=== PATIENT | female | born 1955 | race Native Hawaiian/Other Pacific Islander ===

== ENCOUNTER 2020-11-06 13:03 | Outpatient (CLI) | payer OTHER ==
[~2020-11-06] VITALS: Ht 162.6 cm; Wt 79.4 kg
== END 2020-11-06 21:49 | disposition home or self-care (01) ==
LOC: DIABINF 13:03
PROVIDERS: ATTEND Internal Medicine Endocrinology, Diabetes & Metabolism
DX: E11.65 Type 2 diabetes mellitus with hyperglycemia (principal); I10 Essential (primary) hypertension; F41.8 Other specified anxiety disorders; Z86.73 Personal history of transient ischemic attack (TIA), and cerebral infarction without residual deficits; M32.9 Systemic lupus erythematosus, unspecified; G89.4 Chronic pain syndrome; M79.7 Fibromyalgia; R53.82 Chronic fatigue, unspecified; N18.9 Chronic kidney disease, unspecified
CPT/HCPCS: 82948; 96365; 96366; 96521; J1815; J1817

== ENCOUNTER 2020-11-07 12:51 | Outpatient (CLI) | payer OTHER ==
[~2020-11-07] VITALS: Ht 162.6 cm; Wt 81.2 kg
== END 2020-11-07 22:44 | disposition home or self-care (01) ==
LOC: DIABINF 12:51
PROVIDERS: ATTEND Internal Medicine Endocrinology, Diabetes & Metabolism
DX: E11.65 Type 2 diabetes mellitus with hyperglycemia (principal); I10 Essential (primary) hypertension; F41.8 Other specified anxiety disorders; Z86.73 Personal history of transient ischemic attack (TIA), and cerebral infarction without residual deficits; M32.9 Systemic lupus erythematosus, unspecified; G89.4 Chronic pain syndrome; M79.7 Fibromyalgia; R53.82 Chronic fatigue, unspecified; N18.9 Chronic kidney disease, unspecified
CPT/HCPCS: 82948; 96365; 96366; 96521; J1815; J1817

== ENCOUNTER 2020-11-13 13:11 | Outpatient (CLI) | payer OTHER ==
[~2020-11-13] VITALS: Ht 162.6 cm; Wt 81.2 kg
== END 2020-11-13 20:04 | disposition home or self-care (01) ==
LOC: DIABINF 13:11
PROVIDERS: ATTEND Internal Medicine Endocrinology, Diabetes & Metabolism
DX: E11.65 Type 2 diabetes mellitus with hyperglycemia (principal); E11.42 Type 2 diabetes mellitus with diabetic polyneuropathy; I10 Essential (primary) hypertension; Z86.73 Personal history of transient ischemic attack (TIA), and cerebral infarction without residual deficits; L93.2 Other local lupus erythematosus; G89.4 Chronic pain syndrome; M79.7 Fibromyalgia; F41.1 Generalized anxiety disorder; F32.89 Other specified depressive episodes; N18.30 Chronic kidney disease, stage 3 unspecified; I25.10 Atherosclerotic heart disease of native coronary artery without angina pectoris; H26.8 Other specified cataract; M92.62 Juvenile osteochondrosis of tarsus, left ankle
CPT/HCPCS: 82948; 96365; 96366; 96521; J1815; J1817

== ENCOUNTER 2020-11-14 12:56 | Outpatient (CLI) | payer OTHER ==
[~2020-11-14] VITALS: Ht 162.6 cm; Wt 81.2 kg
== END 2020-11-14 19:25 | disposition home or self-care (01) ==
LOC: DIABINF 12:56
PROVIDERS: ATTEND Internal Medicine Endocrinology, Diabetes & Metabolism
DX: E11.65 Type 2 diabetes mellitus with hyperglycemia (principal); E11.42 Type 2 diabetes mellitus with diabetic polyneuropathy; I10 Essential (primary) hypertension; Z86.73 Personal history of transient ischemic attack (TIA), and cerebral infarction without residual deficits; L93.2 Other local lupus erythematosus; G89.4 Chronic pain syndrome; M79.7 Fibromyalgia; F41.1 Generalized anxiety disorder; F32.89 Other specified depressive episodes; N18.30 Chronic kidney disease, stage 3 unspecified; I25.10 Atherosclerotic heart disease of native coronary artery without angina pectoris; H26.8 Other specified cataract; M92.62 Juvenile osteochondrosis of tarsus, left ankle
CPT/HCPCS: 82948; 96365; 96366; 96521; J1815; J1817

== ENCOUNTER 2020-11-20 12:44 | Outpatient (CLI) | payer OTHER ==
[~2020-11-20] VITALS: Ht 162.6 cm; Wt 81.2 kg
== END 2020-11-20 16:00 | disposition home or self-care (01) ==
LOC: DIABINF 12:44
PROVIDERS: ATTEND Nurse Practitioner
DX: E11.65 Type 2 diabetes mellitus with hyperglycemia (principal); E11.42 Type 2 diabetes mellitus with diabetic polyneuropathy; I10 Essential (primary) hypertension; Z87.820 Personal history of traumatic brain injury; L93.2 Other local lupus erythematosus; G89.4 Chronic pain syndrome; F32.89 Other specified depressive episodes; N18.30 Chronic kidney disease, stage 3 unspecified; I25.10 Atherosclerotic heart disease of native coronary artery without angina pectoris; H26.8 Other specified cataract; M92.62 Juvenile osteochondrosis of tarsus, left ankle
CPT/HCPCS: 82948; 96365; 96366; 96521; J1815; J1817; J2405

== ENCOUNTER 2020-11-21 12:56 | Outpatient (CLI) | payer OTHER ==
[~2020-11-21] VITALS: Ht 157.5 cm; Wt 81.2 kg
== END 2020-11-21 16:00 | disposition home or self-care (01) ==
LOC: DIABINF 12:56
PROVIDERS: ATTEND Internal Medicine Endocrinology, Diabetes & Metabolism
DX: E11.65 Type 2 diabetes mellitus with hyperglycemia (principal); E11.42 Type 2 diabetes mellitus with diabetic polyneuropathy; I10 Essential (primary) hypertension; Z86.73 Personal history of transient ischemic attack (TIA), and cerebral infarction without residual deficits; L93.2 Other local lupus erythematosus; G89.4 Chronic pain syndrome; M79.7 Fibromyalgia; F41.1 Generalized anxiety disorder; F32.89 Other specified depressive episodes; N18.30 Chronic kidney disease, stage 3 unspecified; I25.10 Atherosclerotic heart disease of native coronary artery without angina pectoris; H26.8 Other specified cataract; M92.62 Juvenile osteochondrosis of tarsus, left ankle
CPT/HCPCS: 82948; 96365; 96366; 96521; J1815; J1817

== ENCOUNTER 2020-11-27 12:48 | Outpatient (CLI) | payer OTHER ==
[~2020-11-27] VITALS: Ht 157.5 cm; Wt 81.2 kg
== END 2020-11-27 16:00 | disposition home or self-care (01) ==
LOC: DIABINF 12:48
PROVIDERS: ATTEND Nurse Practitioner
DX: E11.65 Type 2 diabetes mellitus with hyperglycemia (principal); E11.40 Type 2 diabetes mellitus with diabetic neuropathy, unspecified; M79.7 Fibromyalgia; I10 Essential (primary) hypertension; E78.2 Mixed hyperlipidemia; L93.2 Other local lupus erythematosus; N18.30 Chronic kidney disease, stage 3 unspecified; R53.82 Chronic fatigue, unspecified
CPT/HCPCS: 82948; 96365; 96366; 96521; J1815; J1817

== ENCOUNTER 2020-11-28 12:49 | Outpatient (CLI) | payer OTHER | END 2020-11-28 16:00 | disposition home or self-care (01) | LOC: DIABINF 12:49 | PROVIDERS: ATTEND Nurse Practitioner | DX: E11.65 Type 2 diabetes mellitus with hyperglycemia (principal); E11.40 Type 2 diabetes mellitus with diabetic neuropathy, unspecified; M79.7 Fibromyalgia; I10 Essential (primary) hypertension; E78.2 Mixed hyperlipidemia; L93.2 Other local lupus erythematosus; N18.30 Chronic kidney disease, stage 3 unspecified; R53.82 Chronic fatigue, unspecified | CPT/HCPCS: 82948; 96365; 96366; 96521; J1817 ==

== ENCOUNTER 2020-12-05 13:13 | Outpatient (CLI) | payer OTHER ==
[~2020-12-05] VITALS: Ht 157.5 cm; Wt 81.2 kg
== END 2020-12-05 19:19 | disposition home or self-care (01) ==
LOC: DIABINF 13:13
PROVIDERS: ATTEND Nurse Practitioner
DX: E11.65 Type 2 diabetes mellitus with hyperglycemia (principal); E11.42 Type 2 diabetes mellitus with diabetic polyneuropathy; I10 Essential (primary) hypertension; Z86.73 Personal history of transient ischemic attack (TIA), and cerebral infarction without residual deficits; L93.2 Other local lupus erythematosus; G89.4 Chronic pain syndrome; M79.7 Fibromyalgia; F41.1 Generalized anxiety disorder; F32.89 Other specified depressive episodes; N18.30 Chronic kidney disease, stage 3 unspecified; I25.10 Atherosclerotic heart disease of native coronary artery without angina pectoris; H26.8 Other specified cataract; M92.62 Juvenile osteochondrosis of tarsus, left ankle
CPT/HCPCS: 82948; 96365; 96366; 96521; J1815; J1817

== ENCOUNTER 2020-12-12 13:03 | Outpatient (CLI) | payer OTHER ==
[~2020-12-12] VITALS: Ht 162.6 cm; Wt 80.7 kg
== END 2020-12-12 22:34 | disposition home or self-care (01) ==
LOC: DIABINF 13:03
PROVIDERS: ATTEND Nurse Practitioner
DX: E11.65 Type 2 diabetes mellitus with hyperglycemia (principal); E11.42 Type 2 diabetes mellitus with diabetic polyneuropathy; I10 Essential (primary) hypertension; Z86.73 Personal history of transient ischemic attack (TIA), and cerebral infarction without residual deficits; L93.2 Other local lupus erythematosus; G89.4 Chronic pain syndrome; M79.7 Fibromyalgia; F41.1 Generalized anxiety disorder; F32.89 Other specified depressive episodes; N18.30 Chronic kidney disease, stage 3 unspecified; I25.10 Atherosclerotic heart disease of native coronary artery without angina pectoris; M92.62 Juvenile osteochondrosis of tarsus, left ankle
CPT/HCPCS: 82948; 96365; 96366; 96521; J1815; J1817

== ENCOUNTER 2020-12-21 12:30 | Outpatient (CLI) | payer OTHER ==
[~2020-12-21] VITALS: Ht 162.6 cm; Wt 80.7 kg
== END 2020-12-21 21:06 | disposition home or self-care (01) ==
LOC: DIABINF 12:30
PROVIDERS: ATTEND Nurse Practitioner
DX: E11.65 Type 2 diabetes mellitus with hyperglycemia (principal); E11.42 Type 2 diabetes mellitus with diabetic polyneuropathy; I10 Essential (primary) hypertension; L93.2 Other local lupus erythematosus; M79.7 Fibromyalgia; N18.30 Chronic kidney disease, stage 3 unspecified; E78.2 Mixed hyperlipidemia
CPT/HCPCS: 82948; 96365; 96366; 96521; J1815; J1817

== ENCOUNTER 2020-12-26 12:50 | Outpatient (CLI) | payer OTHER ==
[~2020-12-26] VITALS: Ht 162.6 cm; Wt 80.7 kg
== END 2020-12-26 20:38 | disposition home or self-care (01) ==
LOC: DIABINF 12:50
PROVIDERS: ATTEND Nurse Practitioner
DX: E11.65 Type 2 diabetes mellitus with hyperglycemia (principal); E11.40 Type 2 diabetes mellitus with diabetic neuropathy, unspecified; M79.7 Fibromyalgia; I10 Essential (primary) hypertension; E78.2 Mixed hyperlipidemia; M32.9 Systemic lupus erythematosus, unspecified; N18.30 Chronic kidney disease, stage 3 unspecified; R53.82 Chronic fatigue, unspecified
CPT/HCPCS: 82948; 96365; 96366; 96521; J1815; J1817

== ENCOUNTER 2021-01-02 12:33 | Outpatient (CLI) | payer OTHER ==
[~2021-01-02] VITALS: Ht 162.6 cm; Wt 80.7 kg
== END 2021-01-02 19:22 | disposition home or self-care (01) ==
LOC: DIABINF 12:33
PROVIDERS: ATTEND Nurse Practitioner
DX: E11.65 Type 2 diabetes mellitus with hyperglycemia (principal); E11.40 Type 2 diabetes mellitus with diabetic neuropathy, unspecified; M79.7 Fibromyalgia; I10 Essential (primary) hypertension; E78.2 Mixed hyperlipidemia; M32.9 Systemic lupus erythematosus, unspecified; N18.30 Chronic kidney disease, stage 3 unspecified; R53.82 Chronic fatigue, unspecified
CPT/HCPCS: 82948; 96365; 96366; 96521; J1815; J1817

== ENCOUNTER 2021-01-09 12:37 | Outpatient (CLI) | payer OTHER ==
[~2021-01-09] VITALS: Ht 162.6 cm; Wt 80.7 kg
== END 2021-01-09 19:27 | disposition home or self-care (01) ==
LOC: DIABINF 12:37
PROVIDERS: ATTEND Nurse Practitioner
DX: E11.65 Type 2 diabetes mellitus with hyperglycemia (principal); E11.42 Type 2 diabetes mellitus with diabetic polyneuropathy; I10 Essential (primary) hypertension; Z86.73 Personal history of transient ischemic attack (TIA), and cerebral infarction without residual deficits; M32.9 Systemic lupus erythematosus, unspecified; G89.4 Chronic pain syndrome; M79.7 Fibromyalgia; F41.1 Generalized anxiety disorder; F33.0 Major depressive disorder, recurrent, mild; N18.30 Chronic kidney disease, stage 3 unspecified; I25.10 Atherosclerotic heart disease of native coronary artery without angina pectoris; Z87.898 Personal history of other specified conditions; M21.6X2 Other acquired deformities of left foot
CPT/HCPCS: 82948; 96365; 96366; 96521; J1815; J1817

== ENCOUNTER 2021-01-16 11:34 | Outpatient (CLI) | payer OTHER ==
[2021-01-16 13:54] LABS: POTASSIUM 4.3 mmol/L (3.6-5.2)
== END 2021-01-16 21:23 | disposition home or self-care (01) ==
LOC: LABW 11:34
PROVIDERS: ATTEND Internal Medicine Endocrinology, Diabetes & Metabolism
DX: E11.65 Type 2 diabetes mellitus with hyperglycemia (principal); I10 Essential (primary) hypertension; M32.8 Other forms of systemic lupus erythematosus; G89.4 Chronic pain syndrome; M79.7 Fibromyalgia; F41.8 Other specified anxiety disorders; R53.82 Chronic fatigue, unspecified; Z86.73 Personal history of transient ischemic attack (TIA), and cerebral infarction without residual deficits
CPT/HCPCS: 36415; 80053; 80061; 82306; 83036; 83525; 84681

== ENCOUNTER 2021-01-16 13:06 | Outpatient (CLI) | payer OTHER ==
[~2021-01-16] VITALS: Ht 162.6 cm; Wt 80.7 kg
== END 2021-01-16 21:25 | disposition home or self-care (01) ==
LOC: DIABINF 13:06
PROVIDERS: ATTEND Nurse Practitioner
DX: E11.65 Type 2 diabetes mellitus with hyperglycemia (principal); E11.42 Type 2 diabetes mellitus with diabetic polyneuropathy; I10 Essential (primary) hypertension; Z86.73 Personal history of transient ischemic attack (TIA), and cerebral infarction without residual deficits; M32.9 Systemic lupus erythematosus, unspecified; G89.4 Chronic pain syndrome; M79.7 Fibromyalgia; F41.1 Generalized anxiety disorder; F33.0 Major depressive disorder, recurrent, mild; N18.30 Chronic kidney disease, stage 3 unspecified; I25.10 Atherosclerotic heart disease of native coronary artery without angina pectoris; Z87.898 Personal history of other specified conditions; M92.62 Juvenile osteochondrosis of tarsus, left ankle
CPT/HCPCS: 82948; 96365; 96366; 96521; J1815; J1817